=== PATIENT | female | born 1970 ===

== ENCOUNTER 2021-08-23 06:00 | Day surgery (SDC) | payer OTHER ==
[~2021-08-23 06:00] MED LIST: ATORVASTATIN CA80 MG PO; COZAAR50 MG PO; GABAPENTIN800 M1 PO; METFORMIN HCL500 M3 PO
[2021-08-23] MEDS ORDERED: IBU600 MG PO (09:23)
[2021-08-23] MEDS ORDERED: COLACE100 MG PO (09:24)
== END 2021-08-23 15:55 | disposition home or self-care (01) ==
LOC: CIR.AMB 06:00
PROVIDERS: ATTEND Obstetrics & Gynecology Gynecology
DX: N81.6 Rectocele (principal); Z88.8 Allergy status to other drugs, medicaments and biological substances; I10 Essential (primary) hypertension; E78.5 Hyperlipidemia, unspecified; J45.909 Unspecified asthma, uncomplicated; F17.210 Nicotine dependence, cigarettes, uncomplicated; Z71.6 Tobacco abuse counseling; M79.7 Fibromyalgia; Z79.84 Long term (current) use of oral hypoglycemic drugs; E11.9 Type 2 diabetes mellitus without complications